=== PATIENT | male | born 2000 | race African-American/Black ===

== ENCOUNTER 2021-10-07 04:04 | Day surgery (SDC) | payer OTHER ==
[2021-10-06 14:28] VITALS: BMI 26.2
[2021-10-07] MEDS ORDERED: PROPOFOL 20 ML ONE ×2 (13:31→13:58)
[2021-10-07] MEDS ORDERED: MIDAZOLAM HCL 2 MG/2 ML SINGLE DOSE VIAL ONE (13:31)
[2021-10-07] MEDS ORDERED: ceFAZolin SODIUM 1 GM VIAL ONE (13:45)
[2021-10-07] MEDS ORDERED: ONDANSETRON 4 MG/2 ML VIAL ONE (13:45)
[2021-10-07] MEDS ORDERED: LIDOCAINE HCL 2% (50ML VIAL) SQ ONE (14:00)
[2021-10-07] MEDS ORDERED: BUPIVACAINE HCL/PF 0.5% (5MG/ML) 10 ML VIAL IJ ONE (14:00)
[2021-10-07 16:18] VITALS: RESP 18
[2021-10-07 17:52] VITALS: BP 124/70; PULSE 52; TEMP 98
== END 2021-10-07 17:59 | disposition home or self-care (01) ==
LOC: JASU-SURG 04:04
PROC: 0QBN0ZZ Excision of Right Metatarsal, Open Approach (ICD-10-PCS; principal; 2021-10-07 12:30)
DX: M20.5X1 Other deformities of toe(s) (acquired), right foot (principal)
CPT/HCPCS: 73630-TC-RT-FY; 88304-TC; 88311-TC; 94760